=== PATIENT | male | born 1950 | race Caucasian/White ===

== ENCOUNTER → 2017-10-05 | Outpatient (CLI) | payer OTHER ==
[~2017-10-05] MED LIST: AMLODIPINE BESY10 MG PO; ASPIR 8181 M1 PO; ATORVASTATIN CA40 MG PO; CARVEDILOL6.25 M1 PO; CETIRIZINE HCL5 MG PO; COZAAR 50 MG TA50 M2 PO; ELIQUIS5 MG PO; FLECAINIDE ACET50 M1 PO; FLONASE 0.05%50 MCG NASAL; HYDROCHLOROTHIA25 M2 PO; NEXIUM 40 MG CA40 M1 PO; PREDNISONE 20 M20 MG PO; SYMBICORT160 MCG/4. INH; VENTOLIN HFA 1818 GM INH; WELLBUTRIN XL300 MG PO
--- NOTE | ~2017-10-05 | 2DMMODE ---
[facility] [address] [email or web address] [address] 2 D/M-MODE ECHOCARDIOGRAM Name: LAWRENCE DIEGO Wallace Room #: [facility]#: [id number] Admission: 10/05/17 Attend Phys: Edward Altman Discharge: Date of : 52 Date of Service: 10/05/17 1151 Report #: [id number] THIS REPORT FOR: //name// APPROVED REPORT Study performed: 10/05/2017 10:59:21 EXAM: Comprehensive 2D, Doppler, and color-flow Echocardiogram Patient Location: Echo lab Status: routine BSA: 2.30 BP: 139/76 mmHg Other Information Study Quality: AdequateTechnically Limited Indications Atrial Fibrillation Hypertension/HDD 2D Dimensions RVDd: 37.04 mm LVEF(%): 70.53 (>50%) IVSd: 12.19 (7-11mm) LVOT Diam: 17.68 (18-24mm) LVDd: 54.91 mm PWd: 12.86 (7-11mm) Ascending Ao: 39.38 (22-36mm) LVDs: 32.74 (25-40mm) Aortic Root: 31.10 mm IVC: 19.00 mm Stanley's LVEF: 70.53 % Volumes Left Atrial Volume (Systole) Single Plane 4CH: 66.47 mL Single Plane 2CH: 50.15 mL LA ESV Index: 27.00 mL/m2 Aortic Valve AoV Peak Malachi.: 2.02 m/s AO Peak Gr.: 16.26 mmHg LVOT Max P.09 mmHg LVOT Max V: 1.59 m/s AVIS Vmax: 1.93 cm2 Mitral Valve E/A Ratio: 1.1 MV Decel. Time: 238.87 ms [facility] [place] [address] 2 D/M-MODE ECHOCARDIOGRAM Name: [facility]WR[facility] DIE[id number] Admission: 10/05/17 Attend Phys: Edward Altman Discharge: Date of : 52 Date of Service: 10/05/17 1151 Report #: [id number] MV E Max Malachi.: 0.97 m/s MV A Malachi.: 0.88 m/s MV PHT: 69.27 ms IVRT: 69.20 ms Pulmonary Valve PV Peak Malachi.: 1.17 m/s PV Peak Gr.: 5.48 mmHg Pulmonary Vein P Vein S: 0.69 m/s P Vein A: 0.27 m/s P Vein D: 0.54 m/s P Vein A Dur.: 131.5 msec P Vein S/D Ratio: 1.28 Tricuspid Valve TR Peak Malachi.: 3.03 m/s RAP Estimate: 5.00 mmHg TR Peak Gr.: 36.67 mmHg PA Pressure: 42.00 mmHg Left Ventricle The left ventricle is normal size. Mild concentric left ventricular hypertrophy. The left ventricular systolic function is normal. The left ventricular ejection fraction is within the normal range. LVEF is 50-55%. Moderate diastolic dysfunction is present (pseudonormal filling). Right Ventricle Right ventricle is borderline dilated. Right ventricular systolic function is grossly normal. Right ventricle is hypokinetic. Right ventricle is mildly hypokinetic. Right ventricle is moderately hypokinetic. Atria The left atrium size is normal. The right atrium size is normal. Aortic Valve Aortic valve leaflets are mildly thickened. No aortic regurgitation is present. There is no aortic valvular stenosis. Mitral Valve The mitral valve is normal in structure. There is no mitral valve regurgitation noted. No evidence of mitral valve stenosis. Tricuspid Valve The tricuspid valve is normal in structure. Mild tricuspid regurgitation. PAP is estimated at [address] [address] 2 D/M-MODE ECHOCARDIOGRAM Name: LAWRENCE DIEGO Room #: [facility]#: [id number] Admission: 10/05/17 [facility]end [facility] Dis[facility]: Date of : 52 Date of Service: 10/05/17 1151 Report #: [id number] Pulmonic Valve Pulmonic valve is not well visualized. Mild pulmonic regurgitation. Great Vessels The aortic root is normal in size. Ascending aorta is upper limit of normal at 3.9 cm. IVC is normal in size and collapses >50% with inspiration. Pericardium There is no pericardial effusion. <Conclusion> The left ventricle is normal size. LVEF is 50-55%. Moderate diastolic dysfunction is present (pseudonormal filling). Right ventricle is borderline dilated. Aortic valve leaflets are mildly thickened. The mitral valve is normal in structure. Pulmonic valve is not well visualized. Mild pulmonic regurgitation. There is no pericardial effusion. Ascending aorta is upper limit of normal at 3.9 cm. There is no pericardial effusion. <ELECTRONICALLY SIGNED> By: Bakari Pan MD 10/05/17 1151 1151 1151 Bakari Pan MD /INF
== END ==
LOC: CV 10:42
DX: I48.0 Paroxysmal atrial fibrillation (principal); I10 Essential (primary) hypertension; I37.1 Nonrheumatic pulmonary valve insufficiency

== ENCOUNTER → 2017-12-03 | Outpatient (CLI) | payer OTHER | LOC: RAD 13:49 | DX: R91.8 Other nonspecific abnormal finding of lung field (principal); J45.909 Unspecified asthma, uncomplicated; R60.0 Localized edema; Z88.2 Allergy status to sulfonamides; Z88.0 Allergy status to penicillin; Z91.018 Allergy to other foods ==

== ENCOUNTER → 2017-12-03 | Outpatient (CLI) | payer OTHER ==
[2017-12-03 16:13] LABS: CREATININE 1.4 mg/dL (0.7-1.3)
== END ==
LOC: CAT 15:45 → LAB 15:45
PROVIDERS: Internal Medicine Pulmonary Disease
DX: R91.8 Other nonspecific abnormal finding of lung field (principal); J45.909 Unspecified asthma, uncomplicated; R60.0 Localized edema; Z88.2 Allergy status to sulfonamides; Z88.1 Allergy status to other antibiotic agents; Z91.018 Allergy to other foods

== ENCOUNTER → 2017-12-04 | Outpatient (CLI) | payer OTHER | LOC: ULTRA 08:28 | DX: J45.909 Unspecified asthma, uncomplicated (principal); G47.33 Obstructive sleep apnea (adult) (pediatric); R60.0 Localized edema; Z99.89 Dependence on other enabling machines and devices ==

== ENCOUNTER → 2018-01-15 | Outpatient (CLI) | payer OTHER | LOC: RAD 12:30 | DX: J45.909 Unspecified asthma, uncomplicated (principal); R91.8 Other nonspecific abnormal finding of lung field ==

== ENCOUNTER → 2018-02-03 | Outpatient (CLI) | payer OTHER ==
[2018-02-03 09:36] LABS: HEMATOCRIT 34.8 % (42.0-52.0); HEMOGLOBIN 11.7 gm/dL (14.0-18.0); MCHC 33.6 g/dL (28.0-37.0); MCV 98.3 fL (80.0-100.0); RBC 3.54 mil/uL (4.50-6.00); RDW 15.1 % (10.5-14.5); WBC 5.3 thou/uL (4.0-11.0)
[2018-02-03 10:01] LABS: CALCIUM 8.7 mg/dL (8.5-10.1); CREATININE 1.7 mg/dL (0.7-1.3)
[2018-02-03 10:06] LABS: ALBUMIN 3.7 g/dL (3.4-5.0); TOTAL BILIRUBIN 0.4 mg/dL (<0.1-1.0); TOTAL PROTEIN 7.2 g/dL (6.4-8.2)
== END ==
LOC: LABMALL 06:56
PROVIDERS: Internal Medicine Cardiovascular Disease
DX: I48.91 Unspecified atrial fibrillation (principal); I25.10 Atherosclerotic heart disease of native coronary artery without angina pectoris

== ENCOUNTER 2018-02-05 06:58 | Observation (INO) | payer OTHER ==
[~2018-02-05] VITALS: Ht 180.3 cm; Wt 119.2 kg
--- NOTE | ~2018-02-05 | P ---
[facility] [place] [address] PROCEDURE REPORT Name: LAWRENCE DIEGO Room #: 211-P [facility].Joseph#: [id number] Admission: 02/05/18 Attend Phys: Edward Altman MD Discharge: 02/06/18 Date of : 52 Report #: [id number] THIS REPORT FOR: //name// CC: Thomas Altman PREOPERATIVE DIAGNOSIS: Atrial fibrillation and atrial flutter. POSTOPERATIVE DIAGNOSIS: Atrial fibrillation and atrial flutter. PROCEDURES PERFORMED: 1. Atrial fibrillation ablation, CPT CODE 15625. 2. 3D mapping, CPT CODE 53323. 3. Intracardiac echo, CPT CODE 50966. 4. Focal ablation, CPT CODE 91409. HISTORY: The patient is a 67-year-old with a history of sick sinus syndrome and paroxysmal AFib who we recently lowered his antiarrhythmic drug doses due to bradycardia and developed recurrent atrial arrhythmias. He is here for AFib ablation. ANESTHESIA: The patient underwent general anesthesia with no anesthesia related complications. DESCRIPTION OF PROCEDURE: The patient underwent informed consent. We discussed the details of the procedure including the risk, which include but not limited to bleeding, vascular damage, cardiac perforation, stroke, CT as well as damage to the gambell conduction system requiring permanent pacemaker. He understood these risks and is willing to proceed. As such, the patient was brought to the EP laboratory in a fasting and sedated state and prepped and draped in a sterile fashion. He was placed under general anesthesia. I then injected lidocaine to the right groin and obtained access to the right femoral vein x 3, placing sheaths using the modified Seldinger technique. In the right femoral vein, I placed an 8-Barbadian, 9-Barbadian and 7-Barbadian short sheath. Next, under fluoroscopy I placed a decapolar catheter easily in the coronary sinus. He had a very large coronary sinus. Next, I placed an intracardiac ultrasound camera into the right atrium. There was evidence of two left and two right pulmonary veins. He did have some septal thickening. I found a nice thin area to perform my transseptal. The patient was systemically heparinized and then using an SL1 sheath and a Fillmore needle, I performed a transseptal. The septum was a little thick, but I was able to cross easily. I then exchanged the SL1 sheath for the cryo sheath and again this crossed nicely into the left atrium. Next, I placed my cryoablation catheter into the left atrium. At baseline, the patient was in atrial flutter with an atrial cycle length of 300 milliseconds and proximal and distal activation along the CS. The ventricular cycle length was 865 milliseconds, QRS duration was 105 milliseconds. The QT interval was within normal limits. Next, I performed isolation of the left superior pulmonary vein. [address] [address] PROCEDURE REPORT Name: LAWRENCE DIEGO Room #: 211-P [facility] Davion Robles#: [id number] Admission: 02/05/18 Attend Phys: Edward Altman MD Discharge: 02/06/18 Date of : 52 Report #: [id number] This vein isolated within 30 seconds of the first freeze and I performed a single 4 minute freeze. I then turned my attention to the left inferior pulmonary vein. I performed one 4 minute freeze with very good temperatures at -50 and this vein was isolated. I then turned my attention to the right superior pulmonary vein. My first freeze was 170 milliseconds that I came off because the temperature had reached -57. I then performed a second freeze of 130 seconds and I came off early due to low temps. When I interrogated this vein, this was also isolated. I then isolated the right inferior pulmonary vein and I performed a single 4 minute freeze with evidence of isolation. All veins were re-interrogated and found to be isolated. While I was freezing the right-sided veins, phrenic nerve pacing was performed and there was never any phrenic nerve compromise. As such, I pulled my cryo sheath into the right atrium and via the cryo sheath, I placed a live wire catheter into the right atrium. I removed my ice catheter and used this sheath to exchange for a ramp sheath and an 8 mm Bios[employer] Vargas ablation catheter. The patient demonstrated evidence of counterclockwise typical atrial flutter. Entrainment from the Halo 1, 2 demonstrated a PPI minus tachycardia cycle length of 0. To confirm this, activation map of the atrial flutter was created, which showed activation across the isthmus. Next, ablation was performed at 70 soria and 60 degrees and a continuous drag lesion was performed until atrial flutter terminated. There was a 4-second pause and atrial pacing was performed. We paced the patient for a few minutes and then decreased the rate and his underlying rhythm came back on its own. Post-ablation, there was evidence of bidirectional block with a transisthmus conduction time of 170 milliseconds. Post-ablation, the patient was in sinus rhythm with sinus cycle length of 1215 milliseconds, HI interval 180 milliseconds, QRS duration 110 milliseconds and a QTC of 485 milliseconds. I placed intracardiac ultrasound back into the right atrium and there was no evidence of effusion at the end of the case. The patient awoke neurologically and hemodynamically intact. No complications and no significant bleeding. CONCLUSIONS: 1. Successful ablation of atrial fibrillation with isolation of the four pulmonary veins. 2. Successful atrial flutter ablation with evidence of bidirectional block post-ablation. <ELECTRONICALLY SIGNED> By: Edward Altman MD 02/08/18 1340 [id number] Edward Altman MD /nt
[2018-02-05 07:23] VITALS: BP 147/80
[2018-02-05] MEDS ORDERED: VENTOLIN HFA 1818 GM INH (07:23)
[2018-02-05] MEDS ORDERED: SYMBICORT160 MCG/4. INH (07:46)
[2018-02-05 08:08] LABS: HEMATOCRIT 34.4 % (42.0-52.0); HEMOGLOBIN 11.6 gm/dL (14.0-18.0); MCH 32.9 pg (26.0-34.0); MCHC 33.8 g/dL (28.0-37.0); MCV 97.3 fL (80.0-100.0); PLATELET COUNT 184 thou/uL (150-400); RBC 3.54 mil/uL (4.50-6.00); RDW 14.7 % (10.5-14.5); WBC 5.9 thou/uL (4.0-11.0)
[2018-02-05 08:14] LABS: CALCIUM 9.1 mg/dL (8.5-10.1); CREATININE 1.5 mg/dL (0.7-1.3); POTASSIUM 3.7 mmol/L (3.5-5.1)
[2018-02-05 08:16] LABS: APTT 28.8 Seconds (24.5-32.8); INR 1.1; PROTIME 10.8 Seconds (9.3-11.4)
[2018-02-05 08:20] LABS: ALBUMIN 3.6 g/dL (3.4-5.0); TOTAL BILIRUBIN 0.6 mg/dL (<0.1-1.0); TOTAL PROTEIN 7.4 g/dL (6.4-8.2)
[2018-02-05 08:34] LABS: ABSOLUTE NEUTROPHILS 4.1 thou/uL (1.4-8.2); PLATELET ESTIMATE NORMAL
[2018-02-05 13:02] VITALS: BP 117/69
[2018-02-05 13:08] VITALS: BP 117/69
[2018-02-05 15:16] VITALS: BP 135/72
[2018-02-05 19:25] VITALS: BP 123/74
[2018-02-06 00:29] VITALS: BP 136/79
[2018-02-06 03:54] VITALS: BP 130/79
[2018-02-06 07:05] VITALS: BP 130/75
[2018-02-06] MEDS ORDERED: FLECAINIDE ACET50 M1 PO (08:42)
[2018-02-06 10:04] VITALS: BP 130/75
== END 2018-02-06 10:25 | disposition home or self-care (01) ==
LOC: CATH 06:58 → 2N 12:55
PROVIDERS: Internal Medicine Cardiovascular Disease
DX: I48.91 Unspecified atrial fibrillation (principal); I48.3 Typical atrial flutter; I49.5 Sick sinus syndrome; I25.10 Atherosclerotic heart disease of native coronary artery without angina pectoris; I12.9 Hypertensive chronic kidney disease with stage 1 through stage 4 chronic kidney disease, or unspecified chronic kidney disease; E11.22 Type 2 diabetes mellitus with diabetic chronic kidney disease; N18.3 Chronic kidney disease, stage 3 (moderate); E11.42 Type 2 diabetes mellitus with diabetic polyneuropathy; K21.9 Gastro-esophageal reflux disease without esophagitis; F32.9 Major depressive disorder, single episode, unspecified; E78.5 Hyperlipidemia, unspecified; I83.899 Varicose veins of unspecified lower extremity with other complications; I87.2 Venous insufficiency (chronic) (peripheral); I70.0 Atherosclerosis of aorta; J45.909 Unspecified asthma, uncomplicated; G47.33 Obstructive sleep apnea (adult) (pediatric); R00.1 Bradycardia, unspecified; R06.00 Dyspnea, unspecified; R00.2 Palpitations; F10.10 Alcohol abuse, uncomplicated; Z98.890 Other specified postprocedural states; Z72.89 Other problems related to lifestyle
CPT/HCPCS: 62110; 62900; 65020; 65040; 65043; 70005

== ENCOUNTER → 2018-02-25 | Outpatient (CLI) | payer OTHER | LOC: RAD 16:20 | DX: M47.894 Other spondylosis, thoracic region (principal) ==

== ENCOUNTER → 2020-04-24 | Outpatient (CLI) | payer OTHER | LOC: SJCVC 15:09 | PROVIDERS: ATTEND Internal Medicine Cardiovascular Disease | DX: I48.0 Paroxysmal atrial fibrillation (principal); I48.3 Typical atrial flutter; I12.9 Hypertensive chronic kidney disease with stage 1 through stage 4 chronic kidney disease, or unspecified chronic kidney disease; E11.22 Type 2 diabetes mellitus with diabetic chronic kidney disease; N18.3 Chronic kidney disease, stage 3 (moderate); G47.33 Obstructive sleep apnea (adult) (pediatric); I49.5 Sick sinus syndrome; J45.909 Unspecified asthma, uncomplicated; E66.9 Obesity, unspecified; Z82.49 Family history of ischemic heart disease and other diseases of the circulatory system; Z79.899 Other long term (current) drug therapy; Z79.82 Long term (current) use of aspirin ==

== ENCOUNTER → 2020-10-23 | Outpatient (CLI) | payer OTHER | LOC: SJCVCIMAG 07:12 | PROVIDERS: ATTEND Internal Medicine Cardiovascular Disease | DX: I08.8 Other rheumatic multiple valve diseases (principal); R94.31 Abnormal electrocardiogram [ECG] [EKG]; I48.0 Paroxysmal atrial fibrillation; I11.0 Hypertensive heart disease with heart failure; I50.31 Acute diastolic (congestive) heart failure; J45.909 Unspecified asthma, uncomplicated; E11.40 Type 2 diabetes mellitus with diabetic neuropathy, unspecified; K21.9 Gastro-esophageal reflux disease without esophagitis; E66.9 Obesity, unspecified; Z79.82 Long term (current) use of aspirin; Z82.49 Family history of ischemic heart disease and other diseases of the circulatory system; Z79.899 Other long term (current) drug therapy ==

== ENCOUNTER → 2020-10-30 | Outpatient (CLI) | payer OTHER | LOC: SJCVCIMAG 07:44 | PROVIDERS: ATTEND Internal Medicine Cardiovascular Disease | DX: R94.31 Abnormal electrocardiogram [ECG] [EKG] (principal); I48.0 Paroxysmal atrial fibrillation; I25.10 Atherosclerotic heart disease of native coronary artery without angina pectoris; I48.3 Typical atrial flutter; I49.5 Sick sinus syndrome; G62.9 Polyneuropathy, unspecified; R42 Dizziness and giddiness; R11.0 Nausea; I13.0 Hypertensive heart and chronic kidney disease with heart failure and stage 1 through stage 4 chronic kidney disease, or unspecified chronic kidney disease; N18.30 Chronic kidney disease, stage 3 unspecified; I50.32 Chronic diastolic (congestive) heart failure; G47.33 Obstructive sleep apnea (adult) (pediatric); E66.09 Other obesity due to excess calories; R60.0 Localized edema; F32.9 Major depressive disorder, single episode, unspecified; Z68.35 Body mass index [BMI] 35.0-35.9, adult; Z79.82 Long term (current) use of aspirin; Z79.899 Other long term (current) drug therapy; Z88.0 Allergy status to penicillin; Z88.2 Allergy status to sulfonamides; Z88.1 Allergy status to other antibiotic agents; Z88.8 Allergy status to other drugs, medicaments and biological substances ==

== ENCOUNTER → 2021-01-29 | Outpatient (CLI) | payer OTHER | LOC: SJCVC 15:05 | PROVIDERS: ATTEND Internal Medicine Cardiovascular Disease | DX: I49.1 Atrial premature depolarization (principal); I48.0 Paroxysmal atrial fibrillation; I48.3 Typical atrial flutter; E11.22 Type 2 diabetes mellitus with diabetic chronic kidney disease; I13.0 Hypertensive heart and chronic kidney disease with heart failure and stage 1 through stage 4 chronic kidney disease, or unspecified chronic kidney disease; I50.32 Chronic diastolic (congestive) heart failure; N18.30 Chronic kidney disease, stage 3 unspecified; J45.909 Unspecified asthma, uncomplicated; G47.33 Obstructive sleep apnea (adult) (pediatric); K21.9 Gastro-esophageal reflux disease without esophagitis; E78.5 Hyperlipidemia, unspecified; Z88.0 Allergy status to penicillin; Z88.8 Allergy status to other drugs, medicaments and biological substances; Z79.82 Long term (current) use of aspirin; Z79.899 Other long term (current) drug therapy; Z82.49 Family history of ischemic heart disease and other diseases of the circulatory system ==

== ENCOUNTER → 2021-10-24 | Outpatient (CLI) | payer OTHER | LOC: SJCVC 15:01 | PROVIDERS: ATTEND Internal Medicine Cardiovascular Disease | DX: R00.1 Bradycardia, unspecified (principal); I48.0 Paroxysmal atrial fibrillation; I48.3 Typical atrial flutter; E11.9 Type 2 diabetes mellitus without complications; E66.01 Morbid (severe) obesity due to excess calories; G45.9 Transient cerebral ischemic attack, unspecified; I10 Essential (primary) hypertension; E11.42 Type 2 diabetes mellitus with diabetic polyneuropathy; G47.33 Obstructive sleep apnea (adult) (pediatric); J45.909 Unspecified asthma, uncomplicated; Z68.35 Body mass index [BMI] 35.0-35.9, adult; Z88.0 Allergy status to penicillin; Z88.5 Allergy status to narcotic agent; Z88.8 Allergy status to other drugs, medicaments and biological substances; Z79.82 Long term (current) use of aspirin; Z79.899 Other long term (current) drug therapy ==